=== PATIENT | female | born 1980 | race Caucasian/White ===

== ENCOUNTER 2016-11-25 14:51 | Outpatient (RCR) | payer MEDICAID ==
--- OUTSIDE RECORDS SUMMARY | 2016-09-17 09:34 | XMS REPORT | Continuity of Care Document ---
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 Name Role Phone ANTONINA MILLER MD PCP Insurance Providers Payer Name Policy Number Subscriber Name Relationship [facility] [id number] Shelia Cooley 17 Self / Same As Patient Advance Directives Directive Response Recorded Date/Time Advance Directives No 02/05/16 5:57pm Health Care Power of Quality Control Lab Tech No 02/05/16 5:57pm Organ Donor No 02/05/16 5:57pm Resuscitation Status Full Code 02/05/16 5:57pm Chief Complaint and Reason for Visit Chief Complaint Head/Cervical Problems Reason for Visit BRAIN TUMOR --S/P SURGERY AND CURRENT RADIATION THERAPY Nausea & vomiting Headache Problems Active Problems Medical Problem Onset Date Status Headache Unknown Acute Nausea & vomiting Unknown Acute Medications Current Home Medications Medication Dose Units Route Directions Days/Qty Instructions Start Date Prochlorperazine Maleate 10 Mg 10 Mg Oral Every 6 Hours as needed for Nausea/Vomiting 11/22/15 Citalopram Hydrobromide 20 Mg 20 Mg Oral Bedtime 11/22/15 Promethazine Hcl 25 Mg 25 Mg Rectal Every 4HRS for Nausea/Vomiting 10 02/05/16 Past Home Medications Medication Directions Ordered Status Prochlorperazine Maleate 10 Mg Tablet, 10 Mg Oral Every 6 Hours for Nausea Discontinued Social History Social History Problem Response Recorded Date/Time Alcohol Use Denies Use 02/05/2016 5:57pm Recreational Drug Use No 02/05/2016 5:57pm Recent Foreign Travel No 02/05/2016 5:54pm Recent Infectious Disease Exposure No 02/05/2016 5:54pm Smoking Status Never a Smoker 02/05/2016 5:57pm Query Response Start Date Stop Date Smoking Status Never a Smoker 11/25/2014 Hospital Discharge Instructions No hospital discharge instructions. Plan of Care Discharge Date 02/05/16 8:52pm Disposition 01 HOME, SELF-CARE Condition at Discharge Improved Instructions/Education Provided External Radiation Therapy (ED) Acute Headache (ED) Acute Nausea and Vomiting (ED) Prescriptions See Medication Section Referrals ANTONINA MILLER MD - Primary Care Physician SALVADOR NEWBERRY - Primary Care Physician JEMMA KRISHNAN - Additional Instructions/Education CLEAR LIQUIDS--WATER, BROTH, JELLO, GATORADE --SIPS AT A TIME WHEN YOUR NAUSEA IS BETTER, ADD BRATS DIET TO CLEAR LIQUIDS--BANANAS, RICE, APPLESAUCE, TOAST, SALTINES FOLLOW UP IN [facility]ER C[facility] TOMORROW All discharge instructions reviewed with patient and/or family. Voiced understanding. Functional Status Query Response Date Recorded Patient Orientation Person Place Time Situation February 05, 2016 6:29pm Allergies, Adverse Reactions, Alerts Allergen Type Severity Reaction Status Last Updated ondansetron ([id number]) Allergy Severe HEADACHE/N/V Active 02/05/16 Levofloxacin Allergy Intermediate RASH & N/V Active 11/27/15 Immunizations Name Given Type Date of Pneumonia Vaccine 10/29/14 Historical Date of Influenza Vaccine 10/29/14 Historical Vital Signs Acute Vital Signs Vital Response Date/Time Temperature (Fahrenheit) 98 degrees F (97.6 - 99.5) 02/05/2016 5:54pm Temperature (Calculated Celsius) 36.6696 degrees C (36.4 - 37.5) 02/05/2016 5 :54pm Pulse Rate (adult) 99 bpm (60 - 90) 02/05/2016 5:54pm Respiratory Rate 18 bpm (12 - 24) 02/05/2016 5:54pm O2 Sat by Pulse Oximetry 99 % (88 - 100) 02/05/2016 5:54pm Blood Pressure 136/81 mm Hg 02/05/2016 5:54pm Blood Pressure Mean 99 mm Hg 02/05/2016 5:54pm Pain Pain Intensity 3 02/05/2016 5:54pm Height (Feet) 5 feet 02/05/2016 5:54pm Height (Inches) 5 inches 02/05/2016 5:54pm Height (Calculated Centimeters) 165.422493 cm 02/05/2016 5:54pm Weight (Pounds) 243 pounds 02/05/2016 5:54pm Weight (Calculated Kilograms) 110.884177 kilograms 02/05/2016 5:54pm Height 5 ft 5 in Weight 243 lb Body Mass Index 40.4 kg/m^2 Results Pending Laboratory Results Test Name Collection Date/Time Procedures No known history of procedures. Encounters Encounter Location Arrival/Admit Date Discharge/Depart Date Attending Provider Departed Emergency Room [facility] 02/05/16 5:44pm 02/04 8:52pm STEPHON DUKES DO Registered Recurring [facility] 02/05/16 12:38pm JEMMA KRISHNAN Recent Diagnosis
[2016-09-17 10:02] LABS: BASOPHILS % (AUTO) 1 % (0-10); EOSINOPHILS # (AUTO) 0.2 10^3/uL (0.0-0.3); EOSINOPHILS % (AUTO) 5 % (0-10); LYMPHOCYTES # (AUTO) 0.9 X 10^3 (1.0-4.0); LYMPHOCYTES % (AUTO) 26 % (12-44); MEAN CORPUSCULAR HEMOGLOBIN 30 PG (25-34); MEAN CORPUSCULAR HGB CONC 34 G/DL (32-36); MEAN CORPUSCULAR VOLUME 89 FL (80-99); MEAN PLATELET VOLUME 9.2 FL (7.4-10.4); MONOCYTES # (AUTO) 0.2 X 10^3 (0.0-1.0); MONOCYTES % (AUTO) 7 % (0-12); NEUTROPHILS # (AUTO) 2.2 X 10^3 (1.8-7.8); NEUTROPHILS % (AUTO) 61 % (42-75); PLATELET COUNT 228 10^3/uL (130-400); RED BLOOD COUNT 3.89 10^6/uL (4.35-5.85); RED CELL DISTRIBUTION WIDTH 12.9 % (10.0-14.5); WHITE BLOOD COUNT 3.6 10^3/uL (4.3-11.0)
[2016-09-17 10:22] LABS: BILIRUBIN,TOTAL 0.4 MG/DL (0.1-1.0); CALCIUM 10.5 MG/DL (8.5-10.1); CREATININE SERUM 1.05 MG/DL (0.60-1.30); TOTAL PROTEIN 6.1 G/DL (6.4-8.2)
[~2016-11-25 14:51] MED LIST: AMLO2.5T; CITA20TA7 PO; HYDR-757 PO; IBUP-1780; PROC-1 PO; PROC10TA PO; PROM25SU43 RC; SULF1TAB35 PO
[2016-11-28] MEDS ORDERED: SODIUM BICARB 8.4% 50 MEQ/50 ML (ABBOTT) SYR ONE (02:41)
== END 2016-12-16 | disposition home or self-care (01) ==
LOC: ONC 14:51
PROVIDERS: ATTEND Internal Medicine Hematology & Oncology
DX: C53.0 Malignant neoplasm of endocervix (principal); N93.9 Abnormal uterine and vaginal bleeding, unspecified; Z90.710 Acquired absence of both cervix and uterus; Z92.21 Personal history of antineoplastic chemotherapy; Z92.3 Personal history of irradiation; Z45.2 Encounter for adjustment and management of vascular access device
CPT/HCPCS: 36591; 80053; 85025; 96523; 99213

== ENCOUNTER → 2016-12-11 | Outpatient (CLI) | payer MEDICAID ==
[~2016-12-11] MED LIST changes: +CATHETER FLUSH 10 ML SYR IV PRN; +IOHEXOL 350 MG/ML 100 ML (OMNIPAQUE 350) VIAL IV ONE; +NS 100 ML (IVPB) BAG IV ONE
--- OUTSIDE RECORDS SUMMARY | 2016-12-11 09:21 | XMS REPORT | Continuity of Care Document ---
Author Author [facility] Organization [facility] Address Unknown Phone Unavailable Care Team Providers Care Stogie Packer Name Role Phone Carol Nair PCP [phone] Source Comments Some departments are not documenting in the electronic medical record. If you do not see the information that you expected, contact Release of Information in the Health Information Management department at [phone] for further assistance in locating additional records.[facility] Active Allergies and Adverse Reactions Allergen Noted Date Severity Reactions Comments Levaquin 01/13/2016 Medium HIVES Zofran Odt 01/16/2016 Low HEADACHE Current Medications Prescription Sig. Disp. Refills Start End Date Status Date citalopram (CELEXA) 20 mg Take 20 mg by mouth Active tablet daily. omeprazole (PRILOSEC) 10 Take 10 mg by mouth twice Active mg capsule daily. senna/docusate Take 1 Tab by mouth twice 01/19/20 Active (SENOKOT-S) 8.6/50 mg daily. 16 tablet levETIRAcetam (KEPPRA) Take 1 Tab by mouth twice 14 Tab 0 01/19/20 Active 500 mg tablet daily. 16 dexamethasone (DECADRON) 1 Tab every 6 hours. Take 25 Tab 0 01/19/20 Active 4 mg tablet 2 tablets by mouth every 16 8 hours for 2 days, then 2 tablets by mouth every 12 hours for 2 days, then 1 tablet every 12 hours for 2 days, then 0.5 tablet every 12 hours for 1 day.Dex 2mg tabletsDisp# 25 oxyCODONE (ROXICODONE) 5 Take 1-3 Tabs by mouth 60 Tab 0 20 Active mg tablet every 6 hours as needed 16 for Pain Earliest Fill Date: 5/6/16 cephalexin (KEFLEX) 500 Take 1 Cap by mouth four 40 Cap 0 01/31/20 Active mg capsule times daily. 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 Social History Tobacco Use Types Packs/Day Years Used Date Former Smoker Alcohol Use Drinks/Week oz/Week Comments No Last Filed Vital Signs Vital Sign Reading Time Taken Blood Pressure 121/80 02/04/2016 1:31 PM CDT Pulse 94 02/04/2016 1:31 PM CDT Temperature 37.6 C (99.6 F) 01/31/2016 10:55 AM CDT Respiratory Rate - - Height 1.651 m (5' 5") 02/04/2016 1:31 PM CDT Weight 110.224 kg (243 lb) 02/04/2016 1:31 PM CDT Body Mass Index 40.44 02/04/2016 1:31 PM CDT Oxygen Saturation 97% 01/19/2016 10:24 AM CDT Plan of Care Health Maintenance Due Date Last Done Comments Physical (Comprehensive) 1986 Exam Pertussis Vaccine 1990 Tetanus Vaccine 1996 Cervical Cancer Screening 2000 Influenza Vaccine 05/28/2016 Results from Last 3 Months Not on file
--- NOTE | 2016-12-11 13:56 | Diagnostic Imaging Report ---
PROCEDURE: CT chest, abdomen, and pelvis with and without contrast. TECHNIQUE: Precontrast images were obtained of the chest, abdomen, and pelvis. Multiple contiguous axial images were obtained through the chest, abdomen, and pelvis after administration of intravenous contrast. INDICATION: History of cervical cancer. 100 ml of Omnipaque 350 is administered intravenously. COMPARISON: 06/16/2016. FINDINGS: CT chest: The lungs demonstrate no significant consolidation, mass or suspicious nodule. The heart size is normal. No pericardial or pleural effusion. There is no mediastinal mass or lymphadenopathy. No significantly enlarged lymph nodes in the kentrell or in the axilla are seen. The osseous structures appear grossly unremarkable. The unenhanced phase demonstrates no concerning calcified lesion. There is a port with the catheter at the SVC level. CT abdomen and pelvis: The liver, the spleen, the adrenals and the pancreas appear markable. The kidneys have symmetric enhancement and contrast excretion. There is no hydronephrosis. The abdominal aorta is normal in caliber. No para-aortic significantly enlarged lymph node is seen. The urinary bladder demonstrates no focal mass. There is some definitive mass in the uterus and in the adnexa. No bowel obstruction. Tiny fat-containing umbilical hernia is seen. Sclerotic degenerative changes and vacuum phenomena at the sacroiliac joints seen. IMPRESSION: CT chest: No suspicious nodule or lymphadenopathy. CT abdomen and pelvis: No suspicious mass. Dictated by: Dictated on workstation # [id number]
--- NOTE | 2016-12-11 19:09 | Diagnostic Imaging Report ---
Bilateral diagnostic mammogram. INDICATION: Followup asymmetry in the left breast. COMPARISON: 07/25/15. The current study was also evaluated with a Computer Aided Detection (CAD) system. FINDINGS: The breasts are composed of scattered fibroglandular densities. There is a port projecting over the left axillary region. Occasional punctate calcifications are seen. The previously seen asymmetry is less prominent on the current exam in the left breast with no suspicious lesion identified. IMPRESSION: No mammographic evidence of malignancy. ACR BI-RADS Category 2: Benign findings. Result letter will be mailed to the patient. Note: At least 10% of breast cancer is not imaged by mammography. Dictated by: Dictated on workstation # [id number]
== END ==
LOC: RAD 09:16
PROVIDERS: ATTEND Internal Medicine Hematology & Oncology
DX: R92.8 Other abnormal and inconclusive findings on diagnostic imaging of breast (principal); Z15.01 Genetic susceptibility to malignant neoplasm of breast; C53.9 Malignant neoplasm of cervix uteri, unspecified; C55 Malignant neoplasm of uterus, part unspecified; C79.31 Secondary malignant neoplasm of brain; R91.1 Solitary pulmonary nodule
CPT/HCPCS: 71270; 74178; 77066

== ENCOUNTER → 2016-12-16 | Outpatient (CLI) | payer MEDICAID ==
[~2016-12-16] MED LIST changes: -CATHETER FLUSH 10 ML SYR IV PRN; +GADOBUTROL 15 MMOL/15 ML (GADAVIST) VIAL IV ONE; -IOHEXOL 350 MG/ML 100 ML (OMNIPAQUE 350) VIAL IV ONE; -NS 100 ML (IVPB) BAG IV ONE
--- NOTE | 2016-12-16 13:18 | Diagnostic Imaging Report ---
PROCEDURE: MR imaging of the brain with and without contrast. TECHNIQUE: Multiplanar, multisequence MR imaging of the brain was performed with and without contrast. 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 Primary uterine cancer. COMPARISON: 06/16/2016. CONTRAST: 11 mL of Gadavist is administered intravenously. FINDINGS: There is no diffusion restriction to suggest an acute infarct or other diffusion abnormality. Postsurgical changes are seen in the right frontal area related to prior craniotomy. There is minimal increase in T2 and FLAIR signal abnormality seen near the right frontal craniotomy and the lateral aspect of the right frontal lobe without associated enhancing mass. Minimal curvilinear enhancement at the resection site similar to the prior exam is likely related to postsurgical changes and mild dural thickening without nodularity is also seen. The left hemisphere demonstrates normal signal. There is normal signal in the brainstem and in the cerebellum. Only minimal periventricular and corpus callosum white matter T2 hyperintense signal intensity is seen, increased from the prior exam probably due to post-therapeutic changes. The pituitary gland is normal in size. No hypothalamic or pineal region mass. There is obliteration of the sphenoidal sinuses with mucosal thickening and enhancement. There is also prominent mucosal thickening in the left maxillary sinus and mucosal thickening in the ethmoid air cells, most prominent posteriorly. This is an interval development from the prior exam. This may relate to sinusitis. The internal auditory canals and inner ear structures are symmetric. The central vascular flow voids appear symmetric. IMPRESSION: 1. There is minimal increased T2 hyperintense signal abnormality in the right frontal lobe adjacent to the resection site without associated post-contrast enhancement, which may relate to radiation effects with no definite evidence of tumor recurrence at this time. Close followup is recommended. 2. Prominent mucosal thickening in the paranasal sinuses may relate to sinusitis. Correlate clinically. Dictated by: Dictated on workstation # [id number]
== END ==
LOC: RAD 09:49
PROVIDERS: ATTEND Internal Medicine Hematology & Oncology
DX: C55 Malignant neoplasm of uterus, part unspecified (principal); C79.31 Secondary malignant neoplasm of brain; Z15.01 Genetic susceptibility to malignant neoplasm of breast
CPT/HCPCS: 70553

== ENCOUNTER 2017-02-16 09:06 | Outpatient (RCR) | payer MEDICAID ==
[2016-12-23 14:35] LABS: BASOPHILS # (AUTO) 0.1 10^3/uL (0.0-0.1); BASOPHILS % (AUTO) 2 % (0-10); EOSINOPHILS # (AUTO) 0.3 10^3/uL (0.0-0.3); EOSINOPHILS % (AUTO) 7 % (0-10); LYMPHOCYTES # (AUTO) 0.9 X 10^3 (1.0-4.0); LYMPHOCYTES % (AUTO) 22 % (12-44); MEAN CORPUSCULAR HEMOGLOBIN 30 PG (25-34); MEAN CORPUSCULAR HGB CONC 33 G/DL (32-36); MEAN CORPUSCULAR VOLUME 90 FL (80-99); MEAN PLATELET VOLUME 8.8 FL (7.4-10.4); MONOCYTES # (AUTO) 0.5 X 10^3 (0.0-1.0); MONOCYTES % (AUTO) 12 % (0-12); NEUTROPHILS # (AUTO) 2.4 X 10^3 (1.8-7.8); NEUTROPHILS % (AUTO) 58 % (42-75); PLATELET COUNT 253 10^3/uL (130-400); RED BLOOD COUNT 4.12 10^6/uL (4.35-5.85); RED CELL DISTRIBUTION WIDTH 13.5 % (10.0-14.5); WHITE BLOOD COUNT 4.1 10^3/uL (4.3-11.0)
[2016-12-23 15:16] LABS: ALBUMIN 4.1 G/DL (3.2-4.5); BILIRUBIN,TOTAL 0.4 MG/DL (0.1-1.0); CALCIUM 10.6 MG/DL (8.5-10.1); CREATININE SERUM 1.17 MG/DL (0.60-1.30); POTASSIUM 4.4 MMOL/L (3.6-5.0); TOTAL PROTEIN 6.9 G/DL (6.4-8.2)
[~2017-02-16 09:06] MED LIST changes: -GADOBUTROL 15 MMOL/15 ML (GADAVIST) VIAL IV ONE
== END 2017-03-23 | disposition home or self-care (01) ==
LOC: ONC 09:06
PROVIDERS: ATTEND Internal Medicine Hematology & Oncology
DX: C53.0 Malignant neoplasm of endocervix (principal); N93.9 Abnormal uterine and vaginal bleeding, unspecified; Z90.710 Acquired absence of both cervix and uterus; Z92.21 Personal history of antineoplastic chemotherapy; Z92.3 Personal history of irradiation; Z45.2 Encounter for adjustment and management of vascular access device
CPT/HCPCS: 36415; 80053; 85025; 96523; 99213

== ENCOUNTER → 2017-04-19 | Outpatient (CLI) | payer MEDICAID | LOC: RAD 12:18 | PROVIDERS: ATTEND Nurse Practitioner Adult Health | DX: T82.599A Other mechanical complication of unspecified cardiac and vascular devices and implants, initial encounter (principal) ==

== ENCOUNTER 2017-06-16 11:54 | Outpatient (RCR) | payer MEDICAID ==
[2017-04-19 12:20] LABS: BASOPHILS % (AUTO) 1 % (0-10); EOSINOPHILS # (AUTO) 0.2 10^3/uL (0.0-0.3); EOSINOPHILS % (AUTO) 4 % (0-10); LYMPHOCYTES # (AUTO) 1.2 X 10^3 (1.0-4.0); LYMPHOCYTES % (AUTO) 20 % (12-44); MEAN CORPUSCULAR HEMOGLOBIN 30 PG (25-34); MEAN CORPUSCULAR HGB CONC 34 G/DL (32-36); MEAN CORPUSCULAR VOLUME 89 FL (80-99); MEAN PLATELET VOLUME 8.7 FL (7.4-10.4); MONOCYTES # (AUTO) 0.5 X 10^3 (0.0-1.0); MONOCYTES % (AUTO) 8 % (0-12); NEUTROPHILS # (AUTO) 3.9 X 10^3 (1.8-7.8); NEUTROPHILS % (AUTO) 67 % (42-75); PLATELET COUNT 274 10^3/uL (130-400); RED BLOOD COUNT 4.35 10^6/uL (4.35-5.85); WHITE BLOOD COUNT 5.8 10^3/uL (4.3-11.0)
[2017-04-19 12:45] LABS: ALBUMIN 4.2 GM/DL (3.2-4.5); BILIRUBIN,TOTAL 0.5 MG/DL (0.1-1.0); CALCIUM 10.9 MG/DL (8.5-10.1); CREATININE SERUM 1.03 MG/DL (0.60-1.30); POTASSIUM 4.2 MMOL/L (3.6-5.0); TOTAL PROTEIN 7.2 GM/DL (6.4-8.2)
[~2017-06-16 11:54] MED LIST changes: +ALTEPLASE 2 MG (CATHFLO) CANCER CENTER IV ONE
== END 2017-06-26 | disposition home or self-care (01) ==
LOC: ONC 11:54
PROVIDERS: ATTEND Internal Medicine Hematology & Oncology
DX: C53.0 Malignant neoplasm of endocervix (principal); N93.9 Abnormal uterine and vaginal bleeding, unspecified; Z90.710 Acquired absence of both cervix and uterus; Z92.21 Personal history of antineoplastic chemotherapy; Z92.3 Personal history of irradiation; Z45.2 Encounter for adjustment and management of vascular access device
CPT/HCPCS: 36415; 36593; 80053; 85025; 96523

== ENCOUNTER → 2017-07-12 | Outpatient (CLI) | payer MEDICARE, MEDICAID ==
[~2017-07-12] MED LIST changes: -ALTEPLASE 2 MG (CATHFLO) CANCER CENTER IV ONE; +BARIUM SUSPENSION 2.1% (VANILLA SILQ) 450 ML PO ONE; +IOHEXOL 350 MG/ML 100 ML (OMNIPAQUE 350) VIAL IV ONE; +NS 100 ML (IVPB) BAG IV ONE
--- NOTE | 2017-07-12 12:20 | Diagnostic Imaging Report ---
PROCEDURE: CT chest with contrast, CT abdomen and pelvis with and without contrast. TECHNIQUE: Pre and post intravenous contrast axial imaging of the abdomen and pelvis and post contrast axial imaging of the chest were performed. INDICATION: Uterine cancer. 100 mL of Omnipaque 350 is administered intravenously. COMPARISON: 12/11/2016. FINDINGS: CT CHEST: The lungs demonstrate a calcified nodule in the left upper lobe measuring 5 mm compatible with calcified granuloma. No concerning noncalcified lung nodules are seen. There is no significant consolidation or mass. No pleural or pericardial effusion. The thoracic aorta is normal in caliber. No para-aortic significantly enlarged lymph nodes seen. The osseous structures appear grossly unremarkable. There is right subclavian infusion port with the tip at the upper SVC level. CT ABDOMEN AND PELVIS: There is diffuse fatty infiltration of the liver. Cholecystectomy clips are seen. The spleen, the adrenal glands, and the pancreas appear unremarkable. The kidneys demonstrate no stones on the unenhanced exam. No ureteric or bladder stones seen. There is symmetric renal enhancement and excretion however. The abdominal aorta is normal in caliber. No para-aortic significantly enlarged lymph node is seen. There is a tiny fat-containing umbilical hernia. Divarication of the recti is seen. There is no significant free fluid or fluid collection in the abdomen or pelvis. The uterus demonstrates no discrete mass. There is mild thickening in the rectosigmoid area without inflammatory changes seen. This may relate to mild colitis with possible radiation induced colitis. The urinary bladder wall is slightly thickened which could relate to radiation cystitis as well. No lymphadenopathy or soft tissue mass in the pelvis is seen. The SI joints demonstrate degenerative changes with vacuum phenomenon. IMPRESSION: CT CHEST: No evidence of metastasis. CT ABDOMEN AND PELVIS: 1. Diffuse hepatic steatosis. 2. Tiny fat-containing umbilical hernia. 3. Nonspecific mild thickening in the urinary bladder wall and in the sigmoid colon, which may relate to prior radiation therapy. 4. No evidence of tumor recurrence or metastasis. Dictated by: Dictated on workstation # [id number]
== END ==
LOC: RAD 08:51
PROVIDERS: ATTEND Nurse Practitioner Adult Health
DX: C53.9 Malignant neoplasm of cervix uteri, unspecified (principal); R91.1 Solitary pulmonary nodule
CPT/HCPCS: 71260; 74178

== ENCOUNTER 2017-10-07 09:36 | Outpatient (RCR) | payer MEDICARE, MEDICAID ==
[2017-07-15 13:31] LABS: BASOPHILS % (AUTO) 1 % (0-10); EOSINOPHILS # (AUTO) 0.3 10^3/uL (0.0-0.3); EOSINOPHILS % (AUTO) 5 % (0-10); HEMATOCRIT 39 % (35-52); LYMPHOCYTES # (AUTO) 1.1 X 10^3 (1.0-4.0); LYMPHOCYTES % (AUTO) 19 % (12-44); MEAN CORPUSCULAR HEMOGLOBIN 30 PG (25-34); MEAN CORPUSCULAR HGB CONC 34 G/DL (32-36); MEAN CORPUSCULAR VOLUME 88 FL (80-99); MONOCYTES # (AUTO) 0.5 X 10^3 (0.0-1.0); MONOCYTES % (AUTO) 8 % (0-12); NEUTROPHILS % (AUTO) 68 % (42-75); PLATELET COUNT 271 10^3/uL (130-400); RED BLOOD COUNT 4.38 10^6/uL (4.35-5.85); RED CELL DISTRIBUTION WIDTH 12.8 % (10.0-14.5)
[2017-07-15 13:48] LABS: ALBUMIN 4.1 GM/DL (3.2-4.5); BILIRUBIN,TOTAL 0.4 MG/DL (0.1-1.0); CALCIUM 10.7 MG/DL (8.5-10.1); CREATININE SERUM 1.06 MG/DL (0.60-1.30); TOTAL PROTEIN 7.3 GM/DL (6.4-8.2)
[2017-10-04 16:43] LABS: BASOPHILS # (AUTO) 0.1 10^3/uL (0.0-0.1); BASOPHILS % (AUTO) 1 % (0-10); EOSINOPHILS # (AUTO) 0.3 10^3/uL (0.0-0.3); EOSINOPHILS % (AUTO) 5 % (0-10); HEMATOCRIT 36 % (35-52); HEMOGLOBIN 13.1 G/DL (11.5-16.0); LYMPHOCYTES # (AUTO) 1.3 X 10^3 (1.0-4.0); LYMPHOCYTES % (AUTO) 23 % (12-44); MEAN CORPUSCULAR HEMOGLOBIN 31 PG (25-34); MEAN CORPUSCULAR HGB CONC 36 G/DL (32-36); MEAN CORPUSCULAR VOLUME 86 FL (80-99); MEAN PLATELET VOLUME 9.3 FL (7.4-10.4); MONOCYTES # (AUTO) 0.3 X 10^3 (0.0-1.0); MONOCYTES % (AUTO) 6 % (0-12); NEUTROPHILS # (AUTO) 3.8 X 10^3 (1.8-7.8); NEUTROPHILS % (AUTO) 66 % (42-75); PLATELET COUNT 269 10^3/uL (130-400); RED BLOOD COUNT 4.25 10^6/uL (4.35-5.85); RED CELL DISTRIBUTION WIDTH 13.2 % (10.0-14.5); WHITE BLOOD COUNT 5.8 10^3/uL (4.3-11.0)
[2017-10-04 17:13] LABS: ALANINE AMINOTRANSFERASE 23 U/L (0-55); ALKALINE PHOSPHATASE 65 U/L (40-136); BILIRUBIN,TOTAL 0.3 MG/DL (0.1-1.0); BUN/CREATININE RATIO 14; CALCIUM 10.9 MG/DL (8.5-10.1); CARBON DIOXIDE 24 MMOL/L (21-32); CHLORIDE 106 MMOL/L (98-107); CREATININE SERUM 1.01 MG/DL (0.60-1.30); GFR ESTIMATED > 60; GLUCOSE 110 MG/DL (70-105); POTASSIUM 3.6 MMOL/L (3.6-5.0); SODIUM 141 MMOL/L (135-145); TOTAL PROTEIN 6.9 GM/DL (6.4-8.2)
[~2017-10-07 09:36] MED LIST changes: -BARIUM SUSPENSION 2.1% (VANILLA SILQ) 450 ML PO ONE; -IOHEXOL 350 MG/ML 100 ML (OMNIPAQUE 350) VIAL IV ONE; -NS 100 ML (IVPB) BAG IV ONE
== END 2017-10-13 | disposition home or self-care (01) ==
LOC: ONC 09:36
PROVIDERS: ATTEND Internal Medicine Hematology & Oncology
DX: C53.0 Malignant neoplasm of endocervix (principal); N93.9 Abnormal uterine and vaginal bleeding, unspecified; Z90.710 Acquired absence of both cervix and uterus; Z92.21 Personal history of antineoplastic chemotherapy; Z92.3 Personal history of irradiation
CPT/HCPCS: 36415; 36591; 80053; 85025; 99213

== ENCOUNTER 2018-02-01 15:26 | Outpatient (RCR) | payer MEDICARE, MEDICAID ==
[~2018-02-01 15:26] MED LIST changes: +ALTEPLASE 2 MG (CATHFLO) CANCER CENTER IV ONE; -CITA20TA7 PO; +CITA20TA9 PO; -PROC10TA PO; +PROC10TA10 PO
== END 2018-02-22 | disposition home or self-care (01) ==
LOC: ONC 15:26
PROVIDERS: ATTEND Internal Medicine Hematology & Oncology
DX: C53.0 Malignant neoplasm of endocervix (principal); N93.9 Abnormal uterine and vaginal bleeding, unspecified; Z90.710 Acquired absence of both cervix and uterus; Z92.21 Personal history of antineoplastic chemotherapy; Z92.3 Personal history of irradiation; Z45.2 Encounter for adjustment and management of vascular access device
CPT/HCPCS: 36593; 96523

== ENCOUNTER 2018-06-03 13:10 | Outpatient (RCR) | payer MEDICARE, MEDICAID ==
[~2018-06-03 13:10] MED LIST changes: -ALTEPLASE 2 MG (CATHFLO) CANCER CENTER IV ONE; -AMLO2.5T; +AMLO2.5T3; +HYDR-4226 PO; -HYDR-757 PO
== END 2018-06-26 | disposition home or self-care (01) ==
LOC: ONC 13:10
PROVIDERS: ATTEND Internal Medicine Hematology & Oncology
DX: C53.0 Malignant neoplasm of endocervix (principal); N93.9 Abnormal uterine and vaginal bleeding, unspecified; Z90.710 Acquired absence of both cervix and uterus; Z92.21 Personal history of antineoplastic chemotherapy; Z92.3 Personal history of irradiation; Z45.2 Encounter for adjustment and management of vascular access device
CPT/HCPCS: 96523

== ENCOUNTER 2018-09-12 14:16 | Outpatient (RCR) | payer MEDICARE, MEDICAID ==
[~2018-09-12 14:16] MED LIST changes: -AMLO2.5T3; +AMLO2.5T4
== END 2018-12-11 | disposition home or self-care (01) ==
LOC: ONC 14:16
PROVIDERS: ATTEND Internal Medicine Hematology & Oncology
DX: C53.0 Malignant neoplasm of endocervix (principal); N93.9 Abnormal uterine and vaginal bleeding, unspecified; Z90.710 Acquired absence of both cervix and uterus; Z92.21 Personal history of antineoplastic chemotherapy; Z92.3 Personal history of irradiation

== ENCOUNTER 2022-01-07 20:56 | Emergency (ER) | payer MEDICARE, MEDICAID ==
[~2022-01-07] VITALS: Ht 165.1 cm; Wt 100.0 kg
[~2022-01-07 20:56] MED LIST changes: -SULF1TAB35 PO; +SULF1TAB38 PO
--- NOTE | 2022-01-07 21:27 | ED Lower Extremity ---
General Chief Complaint: Lower Extremity Stated Complaint: TOE INJURY Nursing Triage Note: Pt ambulatory into er with complaint of a stubbed toe. Pt states that she accidently kicked her partners work boot. Pt has minor swelling and some bruising to L. 5th toe. Source: patient Exam Limitations: no limitations History of Present Illness Date Seen by Provider: Jan 09, 2022 Time Seen by Provider: 21:15 Initial Comments This is a well-appearing 41-year-old female who presented to the ER with complaints of left fifth toe pain. States that she was walking and accidentally hit her foot on her 's steel toe boot. Reports a small amount of swelling and some bruising to her toe. Onset: just prior to arrival Allergies and Home Medications Allergies Coded Allergies: ondansetron (Verified Allergy, Severe, HEADACHE/N/V, 02/05/16) levofloxacin (Verified Allergy, Intermediate, RASH & N/V, 11/27/15) Patient Home Medication List Home Medication List Reviewed: Yes Amlodipine Besylate (Amlodipine Besylate) 2.5 Mg Tablet, (Reported) Entered as Reported by: STEFFEN RODRIGUEZ on 08/29/16 1019 Citalopram Hydrobromide (Citalopram HBr) 20 Mg Tablet, 20 MG PO HS, (Reported) Entered as Reported by: ASHLEY PERALTA on 11/22/15 1030 Hydrocodone/Acetaminophen (Hydrocodone/Acetaminophen 5 MG/325 MG TAB) 1 Each Tablet, 1 EACH PO Q4H PRN for PAIN Prescribed by: MAJO FRENCH on 08/29/16 1116 Ibuprofen (Ibuprofen) 800 Mg Tablet, (Reported) Entered as Reported by: STEFFEN RODRIGUEZ on 08/29/16 1019 Sulfamethoxazole/Trimethoprim (Bactrim Ds Tablet) 1 Each Tablet, 1 EACH PO BID Prescribed by: MAJO FRENCH on 08/29/16 1116 Review of Systems Constitutional: no symptoms reported Musculoskeletal: see HPI Skin: see HPI Past Djmndkh-Kphwcr-Zudybk Hx Patient Social History Tobacco Use?: Yes Tobacco type used: Cigarettes Smoking Status: Current Everyday Smoker Use of E-Cig and/or Vaping dev: No Substance use?: No Alcohol Use?: No Pt feels they are or have been: No Immunizations Up To Date Tetanus Booster (TDap): Less than 5yrs Influenza Vaccine Up-to-Date: No; Not Current Past Medical History Gallbladder, Oophorectomy Brain Tumor Reproductive Disorders: Yes (CERVICAL CANCER) Arthritis Brain, Lung, Cervical, Uterine Depression Physical Exam Vital Signs Vital Signs - First Documented 01/07/22 21:12 Temp 36.3 Pulse 91 Resp 18 B/P (MAP) 167/97 (120) Pulse Ox 99 O2 Delivery Room Air Capillary Refill : Less Than 3 Seconds Height, Weight, BMI Height: 5'5" Weight: 238lbs. 0.0oz. 107.706877kc; 36.00 BMI Method:Stated General Appearance: WD/WN, no apparent distress Neck: full range of motion, normal inspection Respiratory: no respiratory distress, no accessory muscle use Feet: bilateral foot non-tender, bilateral foot normal inspection, bilateral foot normal range of motion; left foot other (left 5th toe: small amount of bruising and swelling ) Neurologic/Psychiatric: no motor/sensory deficits, alert, normal mood/affect, oriented x 3 Skin: normal color, warm/dry Progress/Results/Core Measures Results/Orders My Orders Orders - LISA STEWART APRN Foot, Left, 3 Views (01/07/22 21:11) Vital Signs/I&O 01/07/22 01/07/22 21:12 21:58 Temp 36.3 Pulse 91 84 Resp 18 18 B/P (MAP) 167/97 (120) 149/83 Pulse Ox 99 99 O2 Delivery Room Air Room Air Blood Pressure Mean: 120 Diagnostic Imaging Diagonstic Imaging: Xray Comments [facility] [place] [place] NAME: [facility] REC#: [id number] PT STATUS: DEP ER : 1980 PHYSICIAN: LISA STEWART APRN ADMIT DATE: 01/07/22/ER Signed Date of Exam:01/07/22 FOOT, LEFT, 3 VIEWS INDICATION: Left foot pain and swelling. EXAMINATION: Three views of the left foot. FINDINGS: No fracture or dislocation. Articular surfaces are normal. No foreign body. IMPRESSION: Negative left foot. Dictated by: Dictated on workstation # [id number] Dict: 01/07/226 Trans: 01/07/222215 [facility] [id number] Interpreted by: GATO COTA Electronically signed by: GATO COTA 01/07/22 2216 Reviewed: Reviewed by Me Departure Impression Primary Impression: Contusion of toe without damage to nail Disposition: HOME, SELF-CARE Condition: Stable Departure-Patient Inst. Decision time for Depature: 21:25 Referrals: ANTONINA MILLER MD (PCP/Family) Primary Care Physician Patient Instructions: Toe Injury Add. Discharge Instructions: Plan: 1. Rest. Apply ice 20 minutes at a time 4-6x per day for swelling and pain. 2. Take Ibuprofen 600mg every 6 hours as needed for pain. Take with food. 3. Follow up with your primary care provider next week if your symptoms persist. All discharge instructions reviewed with patient and/or family. Voiced understanding. LISA STEWART DATA SUPPORT ANALYST Jan 07, 2022 21:26
[2022-01-07 21:58] VITALS: BP 149/83
--- NOTE | 2022-01-07 22:01 | Diagnostic Imaging Report ---
INDICATION: Left foot pain and swelling. EXAMINATION: Three views of the left foot. FINDINGS: No fracture or dislocation. Articular surfaces are normal. No foreign body. IMPRESSION: Negative left foot. Dictated by: Dictated on workstation # [id number]
== END 2022-01-07 21:57 | disposition home or self-care (01) ==
LOC: EDUNIT# 20:56 → ER 20:58
DX: S90.122A Contusion of left lesser toe(s) without damage to nail, initial encounter (principal); F17.210 Nicotine dependence, cigarettes, uncomplicated; W50.1XXA Accidental kick by another person, initial encounter
CPT/HCPCS: 73630

== ENCOUNTER 2022-02-14 13:32 | Emergency (ER) | payer MEDICAID ==
[~2022-02-14] VITALS: Ht 165 cm; Wt 95.0 kg
[2022-02-14 13:40] VITALS: BP 165/126
[2022-02-14] MEDS ORDERED: GENT15CR6 TP ×2 (13:56→14:17)
--- NOTE | 2022-02-14 13:57 | ED Integumentary General ---
General Chief Complaint: Skin/Wound Problems Stated Complaint: L HAND FINGERS BURN Source: patient Exam Limitations: no limitations History of Present Illness Date Seen by Provider: February 14, 2022 Time Seen by Provider: 13:51 Initial Comments Patient is a 41-year-old female presents ED with a burn to her left thumb and left index finger. This occurred around 930. She works at [employer]. 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 Started having some pain. Noticed some small blisters. Topical burn cream was placed. She went to the ER at [facility] and states they did not want to look at her finger secondary to having a cream. She went to come to the ER to get evaluated of the burn. Normal range of motion. She reports some numbness and tingling. Patient is not up-to-date on her tetanus. Denies fever, chills, nausea, vomiting, diarrhea Allergies and Home Medications Allergies Coded Allergies: ondansetron (Verified Allergy, Severe, HEADACHE/N/V, 02/05/16) levofloxacin (Verified Allergy, Intermediate, RASH & N/V, 11/27/15) Patient Home Medication List Home Medication List Reviewed: Yes Amlodipine Besylate (Amlodipine Besylate) 2.5 Mg Tablet, (Reported) Entered as Reported by: STEFFEN RODRIGUEZ on 08/29/16 1019 Citalopram Hydrobromide (Citalopram HBr) 20 Mg Tablet, 20 MG PO HS, (Reported) Entered as Reported by: ASHLEY PERALTA on 11/22/15 1030 Gentamicin Sulfate (Gentamicin Sulfate) 0.1 % Cream..g., 15 GM TP TID Prescribed by: LITZY GUZMAN on 02/14/22 1356 Hydrocodone/Acetaminophen (Hydrocodone/Acetaminophen 5 MG/325 MG TAB) 1 Each Tablet, 1 EACH PO Q4H PRN for PAIN Prescribed by: MAJO FRENCH on 08/29/16 1116 Ibuprofen (Ibuprofen) 800 Mg Tablet, (Reported) Entered as Reported by: STEFFEN RODRIGUEZ on 08/29/16 1019 Sulfamethoxazole/Trimethoprim (Bactrim Ds Tablet) 1 Each Tablet, 1 EACH PO BID Prescribed by: MAJO FRENCH on 08/29/16 1116 Review of Systems Review of Systems Constitutional: No chills, No diaphoresis EENTM: No blurred vision, No double vision, No vision loss, No mouth pain, No mouth swelling Respiratory: No cough, No dyspnea on exertion Cardiovascular: No chest pain Gastrointestinal: No abdominal pain, No diarrhea, No nausea, No vomiting Genitourinary: No decreased output, No discharge Musculoskeletal: joint pain, muscle pain Skin: change in color, other (burn) All Other Systems Reviewed Negative Unless Noted: Yes Past Ndsyusl-Lszkak-Grcyqn Hx Immunizations Up To Date Tetanus Booster (TDap): Less than 5yrs Past Medical History Gallbladder, Oophorectomy Brain Tumor Reproductive Disorders: Yes (CERVICAL CANCER) Arthritis Brain, Lung, Cervical, Uterine Depression Physical Exam Vital Signs Vital Signs - First Documented 02/14/22 13:40 Pulse 81 Resp 18 B/P (MAP) 165/126 (139) Pulse Ox 98 O2 Delivery Room Air Capillary Refill : General Appearance: WD/WN, no apparent distress HEENT: PERRL/EOMI, normal ENT inspection, TMs normal, pharynx normal Neck: non-tender, full range of motion, supple Cardiovascular: regular rate, rhythm, no edema, no gallop, no JVD, no murmur Respiratory: chest non-tender, lungs clear, normal breath sounds, no respiratory distress, no accessory muscle use Gastrointestinal: normal bowel sounds, non tender, soft, no organomegaly Back: normal inspection, no CVA tenderness Extremities: other (Normal active range of motion left thumb and left index finger distally.) Skin: other (Mild localized erythema to the right palmar thumb distally and distal palmar index finger with some very small blisters bilateral. No necrotic tissue. No whitening of the skin) Progress/Results/Core Measures Results/Orders My Orders Orders - MELLISA MURPHY Dipht,Pertuss(Acell),Tet Adult (Boostrix (02/14/22 14:00) Medications Given in ED Current Medications Medications Dose Ordered Sig/Isidro Route Start Time Stop Time Status Last Admin Dose Admin Diphtheria/ Tetanus/Acell Pertussis 0.5 ml ONCE ONCE IM 02/14/22 14:00 02/14/22 14:01 DC 02/14/22 14:12 0.5 ML Vital Signs/I&O 02/14/22 13:40 Pulse 81 Resp 18 B/P (MAP) 165/126 (139) Pulse Ox 98 O2 Delivery Room Air Departure Communication (PCP) Patient appears to have second-degree burn to the left pad of left thumb and index finger. Very small blisters without eschar or necrotic tissue. Neurovascular intact. Discussed with patient this may take 14 to 21 days to heal. Recommend applying topical gentamicin. Will discharge with topical antibiotic ointment. Updated tetanus. Discussed wound care with patient. Recommend keeping the area covered. Return precautions were discussed. Impression Primary Impression: 2nd deg burn finger Disposition: HOME, SELF-CARE Condition: Stable Departure-Patient Inst. Decision time for Depature: 13:54 Referrals: [facility] (PCP/Family) Primary Care Physician Patient Instructions: Skin Nair (DC) Scripts Gentamicin Sulfate (Gentamicin Sulfate) 0.1 % Cream..g. 15 GM TP TID for 10 Days, #1 EA Prov: MELLISA MURPHY 02/14/22 MELLISA MURPHY February 14, 2022 13:57
[2022-02-14] MEDS ORDERED: TETANUS,DIPTH,PERTUSS P/F (BOOSTRIX) 0.5 ML VIAL IM ONE (14:00)
== END 2022-02-14 14:26 | disposition home or self-care (01) ==
LOC: EDUNIT# 13:32 → ER 13:34
DX: T23.242A Burn of second degree of multiple left fingers (nail), including thumb, initial encounter (principal); X19.XXXA Contact with other heat and hot substances, initial encounter
CPT/HCPCS: 90715

== ENCOUNTER → 2022-07-10 | Outpatient (CLI) | payer MEDICAID ==
[~2022-07-10] MED LIST changes: +GENT15CR6 TP
--- NOTE | 2022-07-10 11:32 | Diagnostic Imaging Report ---
INDICATION: Routine screening. Comparison is made with prior mammograms 12/11/2016 and 07/25/2015. 2-D and 3-D bilateral screening mammography was performed with CAD. Scattered fibroglandular densities are identified bilaterally. Infusaport is noted in the right axilla. No mass or malignant-appearing microcalcifications are seen. There is some deodorant artifact in the axillae bilaterally. IMPRESSION: BI-RADS Category 2 No mammographic features suspicious for malignancy are identified. ACR BI-RADS Category 2: Benign findings. Result letter will be mailed to the patient. Note: At least 10% of breast cancer is not imaged by mammography. Dictated by: Dictated on workstation # [id number]
== END ==
LOC: RAD 08:36
PROVIDERS: ATTEND Nurse Practitioner
DX: Z12.31 Encounter for screening mammogram for malignant neoplasm of breast (principal)
CPT/HCPCS: 77063; 77067

== ENCOUNTER 2022-07-21 11:08 | Outpatient (RCR) | payer MEDICARE, MEDICAID | END 2022-07-27 | disposition home or self-care (01) | LOC: ONC 11:08 | PROVIDERS: ATTEND Internal Medicine Hematology & Oncology | DX: Z85.41 Personal history of malignant neoplasm of cervix uteri (principal) ==

== ENCOUNTER 2022-08-12 13:04 | Emergency (ER) | payer MEDICARE, MEDICAID ==
[~2022-08-12] VITALS: Ht 165.1 cm; Wt 93.0 kg
[2022-08-12 13:17] VITALS: BP 168/107
[2022-08-12] MEDS ORDERED: IBUP-1773 PO (14:43)
--- NOTE | 2022-08-12 14:43 | ED EENT ---
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 (SEGUN MCMILLAN APRN) History of Present Illness Date Seen by Provider: Aug 12, 2022 Time Seen by Provider: 13:25 Initial Comments Patient is a 42-year-old female who presents to the emergency department with chronic intermittent right ear pain that she states seems to occur when she is out in the cold weather. She states the pain is dull and is typically in her inner ear. She also states that it sometimes causes her to have headaches. She denies any hearing loss or drainage from the ear. She has not been taking anything for the symptoms. She denies any pain at the time of my assessment. She has not followed up with anyone for this particular symptom. She states it has been occurring for the last 5 years ever since she had radiation for cancer in her cervical spine. She states she does not have these issues when the weather is warmer. (SEGUN MCMILLAN APRN) Allergies and Home Medications Allergies Coded Allergies: ondansetron (Verified Allergy, Severe, HEADACHE/N/V, 02/05/16) levofloxacin (Verified Allergy, Intermediate, RASH & N/V, 11/27/15) Patient Home Medication List Home Medication List Reviewed: Yes (SEGUN MCMILLAN APRN) Amlodipine Besylate (Amlodipine Besylate) 2.5 Mg Tablet, (Reported) Entered as Reported by: STEFFEN RODRIGUEZ on 08/29/16 1019 Citalopram Hydrobromide (Citalopram HBr) 20 Mg Tablet, 20 MG PO HS, (Reported) Entered as Reported by: ASHLEY PERALTA on 11/22/15 1030 Gentamicin Sulfate (Gentamicin Sulfate) 0.1 % Cream..g., 15 GM TP TID Prescribed by: LITZY GUZMAN on 02/14/22 1417 Hydrocodone/Acetaminophen (Hydrocodone/Acetaminophen 5 MG/325 MG TAB) 1 Each Tablet, 1 EACH PO Q4H PRN for PAIN Prescribed by: MAJO FRENCH on 08/29/16 1116 Ibuprofen (Ibuprofen) 800 Mg Tablet, (Reported) Entered as Reported by: STEFFEN RODRIGUEZ on 08/29/16 1019 Ibuprofen (Ibuprofen) 600 Mg Tablet, 600 MG PO Q6H PRN for PAIN-MILD Prescribed by: Segun Mcmillan on 08/12/22 1443 Sulfamethoxazole/Trimethoprim (Bactrim Ds Tablet) 1 Each Tablet, 1 EACH PO BID Prescribed by: MAJO FRENCH on 08/29/16 1116 Review of Systems Review of Systems Constitutional: no symptoms reported Eyes: No Symptoms Reported Ears: See HPI, Pain Nose: no symptoms reported Mouth: no symptoms reported Throat: no symptoms reported Respiratory: no symptoms reported Cardiovascular: no symptoms reported (SEGUN MCMILLAN APRN) Past Couyuhi-Hzxujh-Jqxenz Hx Patient Social History Tobacco Use?: Yes Tobacco type used: Cigarettes Smoking Status: Current Everyday Smoker Use of E-Cig and/or Vaping dev: No Substance use?: No Alcohol Use?: No (SEGUN MCMILLAN APRN) Immunizations Up To Date Tetanus Booster (TDap): Less than 5yrs Influenza Vaccine Up-to-Date: No; Not Current First/Initial COVID19 Vaccinat: 2020 Second COVID19 Vaccination Gume: 2020 Third COVID19 Vaccination Date: NONE 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 0.0oz. 107.781821ay; 34.00 BMI Method:Stated General Appearance: WD/WN, no apparent distress Ears: bilateral ear auricle normal, bilateral ear canal normal, bilateral ear TM normal Neck: non-tender, full range of motion, supple, normal inspection Cardiovascular: regular rate, rhythm Respiratory: chest non-tender, lungs clear, normal breath sounds, no respiratory distress Gastrointestinal: normal bowel sounds, non tender, soft Neurologic/Psychiatric: kelp or seagrass gatherer II-XII nml as tested, no motor/sensory deficits, al ert, normal mood/affect, oriented x 3 Skin: normal color, warm/dry (MCMILLAN,SEGUN DRAFTER PATENT) Progress/Results/Core Measures Results/Orders Vital Signs/I&O 08/12/22 08/12/22 13:17 15:13 Temp 36.3 Pulse 92 Resp 20 B/P (MAP) 168/107 (127) Pulse Ox 97 O2 Delivery Room Air Room Air (ELIZABET TAY MD) Blood Pressure Mean: 127 Progress Progress Note : Progress Note Patient is nontoxic and well-hydrated on exam. Otoscopy of bilateral ears is unremarkable. No nuchal rigidity appreciated. Patient has full range of motion of the neck. No trismus noted. No erythema or swelling to the right external ear or the mastoid region. Discussed importance of follow-up with PCP and that evaluation by an radiator tester may be indicated given the chronicity of the problem. Return precautions for urgent symptomology discussed. Patient verbalized understanding. (SEGUN MCMILLAN APRN) Departure Impression Primary Impression: Otalgia of right ear Disposition: HOME, SELF-CARE Condition: Stable Departure-Patient Inst. Decision time for Depature: 14:40 (SEGUN MCMILLAN APRN) Referrals: [facility] NEWBERRY (PCP) Primary Care Physician Patient Instructions: Serous Otitis Media Scripts Ibuprofen (Ibuprofen) 600 Mg Tablet 600 MG PO Q6H PRN for PAIN-MILD for 7 Days, #25 TAB 0 Refills Prov: SEGUN MCMILLAN APRN 08/12/22 ATTENDING PHYSICIAN NOTE: I was physically present as attending physician in the emergency department during the care of this patient, but I was not directly involved in the decision making or delivery of care for this patient. (ELIZABET TAY MD) SEGUN MCMILLAN APRN Aug 12, 2022 14:43 ELIZABET TAY MD Aug 12, 2022 20:25
== END 2022-08-12 15:13 | disposition home or self-care (01) ==
LOC: EDUNIT# 13:04 → ER 13:07
DX: H92.01 Otalgia, right ear (principal); F17.210 Nicotine dependence, cigarettes, uncomplicated
CPT/HCPCS: 99282

== ENCOUNTER 2022-10-18 07:03 | Emergency (ER) | payer MEDICARE, MEDICAID ==
[~2022-10-18] VITALS: Ht 165 cm; Wt 92.9 kg
[~2022-10-18 07:03] MED LIST changes: +IBUP-1773 PO
--- NOTE | 2022-10-18 07:35 | ED Integumentary General ---
General Chief Complaint: Skin/Wound Problems Stated Complaint: POSS PORT ISSUE Nursing Triage Note: PT PRESENTS TO ED VIA POV FROM HOME WITH COMPLAINTS OF RAISED AREA OVER HER PORT ON HER R UPPER CHEST. PT STATES IT IS NOT PAINFUL BUT SHE WAS CONCERNED ABOUT THE BUMP. Source: patient History of Present Illness Date Seen by Provider: Oct 18, 2022 Time Seen by Provider: 07:26 Initial Comments 42-year-old female with a history of cervical cancer and BRCA gene presents to the emergency room with a chief complaint of a "lump" she felt to her right anterior chest wall. She worked a 12-hour shift yesterday and states that she went to lie down and for some reason was feeling around her port and noticed this "bump". Patient has had her Cthteu-m-Qlop for many years. It quit working in 2019, it sounds like when she went back to work she was lost to follow-up with the surgeons to have it removed. She has had no issues with pain in the right upper anterior chest. No shortness of breath, no fevers or chills or cough. No pain in the area. All other review of systems reviewed and negative except as stated Timing/Duration: this morning Severity: mild Possible Cause: no cause identified Associated Symptoms: denies symptoms Allergies and Home Medications Allergies Coded Allergies: ondansetron (Verified Allergy, Severe, HEADACHE/N/V, 02/05/16) levofloxacin (Verified Allergy, Intermediate, RASH & N/V, 11/27/15) Patient Home Medication List Home Medication List Reviewed: Yes Amlodipine Besylate (Amlodipine Besylate) 2.5 Mg Tablet, (Reported) Entered as Reported by: STEFFEN RODRIGUEZ on 08/29/16 1019 Citalopram Hydrobromide (Citalopram HBr) 20 Mg Tablet, 20 MG PO HS, (Reported) Entered as Reported by: ASHLEY PERALTA on 11/22/15 1030 Gentamicin Sulfate (Gentamicin Sulfate) 0.1 % Cream..g., 15 GM TP TID Prescribed by: LITZY GUZMAN on 02/14/22 1417 Hydrocodone/Acetaminophen (Hydrocodone/Acetaminophen 5 MG/325 MG TAB) 1 Each T ablet, 1 EACH PO Q4H PRN for PAIN Prescribed by: MAJO FRENCH on 08/29/16 1116 Ibuprofen (Ibuprofen) 800 Mg Tablet, (Reported) Entered as Reported by: STEFFEN Espino MICHAEL on 08/29/16 1019 Ibuprofen (Ibuprofen) 600 Mg Tablet, 600 MG PO Q6H PRN for PAIN-MILD Prescribed by: Segun Mcmillan on 08/12/22 1443 Sulfamethoxazole/Trimethoprim (Bactrim Ds Tablet) 1 Each Tablet, 1 EACH PO BID Prescribed by: MAJO FRENCH on 08/29/16 1116 Review of Systems Review of Systems Constitutional: see HPI EENTM: other (ear "drainage" a few days ago) Respiratory: no symptoms reported Cardiovascular: no symptoms reported Gastrointestinal: no symptoms reported Genitourinary: no symptoms reported Musculoskeletal: no symptoms reported Skin: other ("lump" above port) Past Cuuwvti-Dxwscl-Zbasex Hx Patient Social History Tobacco Use?: Yes Tobacco type used: Cigarettes Smoking Status: Current Everyday Smoker Substance use?: No Alcohol Use?: No Pt feels they are or have been: No Immunizations Up To Date Tetanus Booster (TDap): Less than 5yrs First/Initial COVID19 Vaccinat: 2020 Second COVID19 Vaccination Gume: 2020 Third COVID19 Vaccination Date: NONE Past Medical History Surgery/Hospitalization HX: pmh: htn, depression, cervical ca with mets to brain. sx: port, c-sec, partial hyst, brain ca removal. Gallbladder, Oophorectomy Brain Tumor Reproductive Disorders: Yes (CERVICAL CANCER) Arthritis Brain, Lung, Cervical, Uterine Depression Physical Exam Vital Signs Vital Signs - First Documented 10/18/22 07:18 Temp 36.1 Pulse 81 Resp 18 B/P (MAP) 155/96 (115) Pulse Ox 98 Capillary Refill : Less Than 3 Seconds General Appearance: WD/WN, no apparent distress HEENT: PERRL/EOMI, TMs normal (right TM normal) Neck: non-tender, full range of motion, supple, normal inspection Cardiovascular: regular rate, rhythm Respiratory: no respiratory distress, no accessory muscle use Extremities: normal range of motion Neurologic/Psychiatric: alert, normal mood/affect Skin: normal color, warm/dry, other (small 1-2cm rounded tissue mass, mobile, palpated just above the right upper chest infusaport site, just below the clavical; non tender, no overlying erythema; suspect small lymph node) Lymphatic: other (no right sided cervical LAD, supraclavicular LAD) Progress/Results/Core Measures Results/Orders Vital Signs/I&O 10/18/22 07:18 Temp 36.1 Pulse 81 Resp 18 B/P (MAP) 155/96 (115) Pulse Ox 98 Blood Pressure Mean: 115 Progress Progress Note : Time: 07:38 Progress Note Patient seen and evaluated, 42-year-old female who presents with "lump" around her Jlrjqy-l-Hfzm. Evaluation today includes physical exam. On exam patient has a small mobile rounded soft mass just above the Zbdgtd-n-Iqud on the right anterior chest wall and below the right clavicle. It is nontender, no overlying erythema. Differential diagnosis with history and physical includes lymphadenitis, metastatic disease, scar tissue. Advised the patient to monitor the area for signs or symptoms of developing infection such as fevers, redness, swelling or pain. She has no complaints of illness. She has an appointment with her cancer doctor coming up within the next few weeks. I instructed her to follow-up with him and pointed him to this area. Return precautions provided. All questions are sought and answered. Patient is stable for discharge. Departure Impression Primary Impression: Lymph node enlargement Disposition: 01 HOME, SELF-CARE Condition: Stable Departure-Patient Inst. Decision time for Depature: 07:33 Referrals: [facility] NEWBERRY (PCP/Family) Primary Care Physician Patient Instructions: LYMPH NODE SWELLING Add. Discharge Instructions: Wash the area of concern over the next several days to make sure that you do not experience swelling, redness or increasing tenderness. Monitor yourself for fever. Keep your follow-up appointment with your cancer doctor and be sure and tell him about this area of concern. If you experience any new, concerning or emergent complaints please come back to the emergency room for reevaluation. Copy Copies To 1: EMILY VALLE MD, KATHRYN M MD Oct 18, 2022 07:35
[2022-10-18 07:41] VITALS: BP 155/96
== END 2022-10-18 07:41 | disposition home or self-care (01) ==
LOC: EDUNIT# 07:03 → ER 07:05
DX: R59.0 Localized enlarged lymph nodes (principal); F17.210 Nicotine dependence, cigarettes, uncomplicated
CPT/HCPCS: 99281